=== PATIENT | female | born 1980 | race Caucasian/White ===

== ENCOUNTER 2025-03-18 13:59 | Emergency (ER) | payer BC ==
--- NOTE | 2025-03-18 15:55 | RAD REPORT ---
EXAM: Upper Ext Artery Bilateral HISTORY: bilateral upper extremities;Pain RIGHT COMPARISON: None TECHNIQUE: Multiplanar grayscale and color Doppler images were obtained for an upper extremity arteri al ultrasound. Spectral analysis of the Doppler waveforms were performed. The common carotid artery, subclavian artery, axillary artery, brachial artery, radial artery, and ulnar arteries were e valuated. FINDINGS: The common carotid artery, subclavian artery, axillary artery, brachial artery, radial artery, and ul rafaela arteries were evaluated. Flow was documented on color Doppler. The waveforms were multiphasic and within normal limits. Velocities are within normal limits. IMPRESSION: No significant arterial abnormality of the extremities.
--- NOTE | 2025-03-18 15:57 | RAD REPORT ---
EXAMINATION: UPPER EXTREMITY VENOUS BILAT CLINICAL INDICATION: Female, 44 years old.bilateral upper extremities;Pain TECHNIQUE: Multiplanar grayscale and color Doppler images were obtained in a upper extremity venous ultrasound. Spectral analysis of the Doppler waveforms were performed. COMPARISON: No prior exams FINDINGS: The internal jugular vein, subclavian vein, axillary vein, basilic vein, brachial vein, cephalic vein , radial vein, and ulnar vein were evaluated and patent. The brachial vein, cephalic vein, radial vein, and ulnar veins were compressible and patent. Nonocclusive thrombus present at the left cephalic vein at the antecubital fossa. IMPRESSION: No evidence of deep venous thrombosis in either upper extremity. Nonocclusive thrombus at the left cephalic vein which is a superficial branch.
--- NOTE | 2025-03-18 17:00 | EDPHYS ---
Physician Documentation [facility] Name: Zuri Wesley Age: 44 yrs Sex: Female : 1980 Arrival Date: 03/18/2025 Time: 13:59 Bed 5 Private MD: ED Physician Scout Rogers HPI: 03/18 15:37 This 44 yrs old Female presents to ER via Ambulatory with complaints of Numbness Of kb Hand. 15:37 Patient is a 44-year-old female who presents for numbness and tingling that has been kb intermittent for 1 week to the 2nd, 3rd and 4th digits of bilateral hands. States it is worse this morning so that is what brought her in. States symptoms have improved since then. States she is concerned about her blood flow.. Historical: - Allergies: 14:11 No Known Allergies; aa5 - PMHx: 14:11 None; aa5 - PSHx: 14:11 None; aa5 - Immunization history:: Adult Immunizations unknown. - Infectious Disease History:: Denies. - Social history:: Smoking status: Patient denies any tobacco usage or history of. ROS: 15:37 Constitutional: As per HPI kb Exam: 15:37 Constitutional: This is a well developed, well nourished patient who is awake, alert, kb and in no acute distress. Head/Face: Normocephalic, atraumatic. ENT: Moist Mucous membranes Cardiovascular: Regular rate Respiratory: Respirations even and unlabored. No increased work of breathing. Talking in full sentences Skin: Warm, dry with normal turgor. Normal color. Neuro: Awake and alert, GCS 15, oriented to person, place, time, and situation. 15:37 Musculoskeletal/extremity: Extremities: grossly normal except: noted in the palmar aspect of distal phalanx of right ring finger, palmar aspect of distal phalanx of right middle finger, palmar aspect of distal phalanx of right index finger, palmar aspect of distal phalanx of left ring finger, palmar aspect of distal phalanx of left middle finger and palmar aspect of distal phalanx of left index finger: Slight discoloration, ROM: intact in all extremities, Circulation is intact in all extremities. Sensation intact. Vital Signs: 14:10 BP 118 / 75; Pulse 74; Resp 16 S; Temp 98.2(O); Pulse Ox 100% on R/A; Weight 64.41 kg aa5 (R); Height 4 ft. 11 in. (R); 16:26 BP 124 / 74; Pulse 71; Resp 15; Pulse Ox 99% ; hb 14:10 Body Mass Index 28.68 (64.41 kg, 149.86 cm) aa5 MDM: 14:06 Medical Screening Exam initiated kb 17:00 Differential diagnosis: Autoimmune disorder, paresthesia, arterial occlusion, DVT. Data kb reviewed: vital signs, nurses notes. Management of patient was discussed with the following: Dr. Rogers who evaluated and spoke with patient as well. Recommends follow-up outpatient. Historians other than the Patient: Spouse/Significant Other: Significant other. Counseling: I had a detailed discussion with the patient and/or guardian regarding the historical points, exam findings, and any diagnostic results supporting the discharge/admit diagnosis, radiology results, the need for outpatient follow up, a family practitioner, to return to the emergency department if symptoms worsen or persist or if there are any questions or concerns that arise at home. 17:16 ED course: Patient requested to see physician, I went in and evaluated patient again rn and went over results. Patient has left superficial vein clot, secondary to IV draw, patient recently had vampire facial and IV was placed with draw on the left arm where clot is found. Patient also has family history of lupus and presents with intermittent paresthesias and discoloration and pain to bilateral fingertips. States this has been going on and off for about a week but got worse today. Otherwise no evidence of DVT or arterial occlusion. When I evaluated patient there was no discoloration. Does have slow capillary refill but otherwise okay. Given family history of lupus I told patient could have rheumatologic problem versus vasculitis versus spasm. Recommend rheumatologic and PCP follow-up for rheumatologic workup. Strict return precautions given and understood. Also patient uses preworkout stimulants often as well as caffeine. Recommend avoiding stimulants at this time until she gets evaluated again. Recommend baby aspirin and follow-up.. 03/18 14:31 Order name: Upper Ext Artery Bilateral; Complete Time: 15:59 EDMS 03/18 14:32 Order name: UPPER EXTREMITY VENOUS BILAT; Complete Time: 15:59 EDMS Administered Medications: No medications were administered Disposition Summary: 04/26/25 17:00 Discharge Ordered Notes: Location: Home kb Condition: Stable kb Diagnosis - Paresthesia of skin kb Followup: kb - With: Emergency Department - When: As needed - Reason: Worsening of condition Followup: kb - With: Private Physician - When: 2 - 3 days - Reason: Recheck today's complaints, Continuance of care, Re-evaluation by your physician Discharge Instructions: - Discharge Summary Sheet kb - Paresthesia, [id number] kb Forms: - Medication Reconciliation Form kb - Antibiotic Education kb - Prescription Opioid Use kb - Patient Portal Instructions kb - Leadership Thank You Letter kb Addendum: 03/20/2025 09:03 Co-signature as Attending Physician, Scout Rogers MD I reviewed the patient's care r n provided by the Advanced Practice Provider and agree with the diagnosis and treatment plan. Signatures: Dispatcher [employer] EDMS Fabi Smyth, GRIZZLYMAN-C GRIZZLYMAN-Ckb Scout Rogers MD MD rn Ginette Alfaro RN RN aa5 Corrections: (The following items were deleted from the chart) 03/18 14:31 14:17 Lower Extremity Arterial Bilat+US.RAD.BRZ ordered. EDMS EDMS 14:32 14:17 Extrem Venous W Compression Quan+US.RAD.BRZ ordered. EDMS EDMS 15:39 15:37 Patient is a 44-year-old female who presents for numbness and tingling that has kb been intermittent for 1 week to the 2nd, 3rd and 4th digits of bilateral hands. States it is worse today so that is what brought her in. States she is concerned about her blood flow.. kb
--- NOTE | 2025-03-18 17:00 | ER ---
Nurse's Notes [facility] Name: Zuri Wesley Age: 44 yrs Sex: Female : 1980 Arrival Date: 03/18/2025 Time: 13:59 Bed 5 Private MD: Diagnosis: Paresthesia of skin Presentation: 03/18 14:10 Chief complaint: Patient states: "I've had numbness, tingling, and discoloration to my aa5 fingers (Quan index, middle, and ring fingers) for about a week now". 14:10 Coronavirus screen: At this time, the client does not indicate any symptoms associated aa5 with coronavirus-19. Ebola Screen: Patient denies travel to an Ebola-affected area in the 21 days before illness onset. Initial Sepsis Screen: Does the patient meet any 2 criteria? No. Patient's initial sepsis screen is negative. Does the patient have a suspected source of infection? No. Patient's initial sepsis screen is negative. Risk Assessment: Do you want to hurt yourself or someone else? Patient reports no desire to harm self or others. Onset of symptoms was February 2025. 14:10 Acuity: MOODY 3 aa5 14:10 Method Of Arrival: Ambulatory aa5 Historical: - Allergies: 14:11 No Known Allergies; aa5 - PMHx: 14:11 None; aa5 - PSHx: 14:11 None; aa5 - Immunization history:: Adult Immunizations unknown. - Infectious Disease History:: Denies. - Social history:: Smoking status: Patient denies any tobacco usage or history of. Screenin:33 [facility] ED Fall Risk Assessment (Adult) History of falling in the last 3 months, hb including since admission No falls in past 3 months (0 pts) Confusion or Disorientation No (0 pts) Intoxicated or Sedated No (0 pts) Impaired Gait No (0 pts) Mobility Assist Device Used No (0 pt) Altered Elimination No (0 pt) Score/Fall Risk Level 0 - 2 = Low Risk Oriented to surroundings, Maintained a safe environment, Educated pt \\T\\ family on fall prevention, incl call for assistance when getting out of bed. Abuse screen: Denies threats or abuse. Denies injuries from another. Nutritional screening: No deficits noted. Tuberculosis screening: No symptoms or risk factors identified. Assessment: 14:33 General: Appears in no apparent distress. Behavior is calm, cooperative. Pain: Denies hb pain. Neuro: Level of Consciousness is awake, alert, obeys commands, Oriented to person, place, time, situation, Reports paresthesias right hand/fingers. Cardiovascular: Patient's skin is warm and dry. Respiratory: Respiratory effort is even, unlabored, Respiratory pattern is regular, symmetrical. GI: No signs and/or symptoms were reported involving the gastrointestinal system. : No signs and/or symptoms were reported regarding the genitourinary system. EENT: No signs and/or symptoms were reported regarding the EENT system. Derm: Skin is pink, warm \\T\\ dry. Musculoskeletal: No signs and/or symptoms reported regarding the musculoskeletal system. 16:26 Reassessment: Patient appears in no apparent distress at this time. Patient and/or hb family updated on plan of care and expected duration. Pain level reassessed. Patient is alert, oriented x 3, equal unlabored respirations, skin warm/dry/pink. 17:25 Reassessment: Patient is alert, oriented x 3, equal unlabored respirations, skin aa5 warm/dry/pink. Vital Signs: 14:10 BP 118 / 75; Pulse 74; Resp 16 S; Temp 98.2(O); Pulse Ox 100% on R/A; Weight 64.41 kg aa5 (R); Height 4 ft. 11 in. (R); 16:26 BP 124 / 74; Pulse 71; Resp 15; Pulse Ox 99% ; hb 14:10 Body Mass Index 28.68 (64.41 kg, 149.86 cm) aa5 ED Course: 14:02 Patient arrived in ED. im 14:06 Fabi Smyth FNP-C is PHCP. kb 14:06 Scout Rogers MD is Attending Physician. kb 14:10 Arm band placed on. aa5 14:13 Triage completed. aa5 14:33 Patient has correct armband on for positive identification. Bed in low position. Call hb light in reach. Provided Education on: tests, result times. 14:33 No provider procedures requiring assistance completed. Patient did not have IV access hb during this emergency room visit. 14:36 Fanny Alvarez, RN is Primary Nurse. cm10 15:49 Upper Ext Artery Bilateral In Process Unspecified. EDMS 15:50 UPPER EXTREMITY VENOUS BILAT In Process Unspecified. EDMS Administered Medications: No medications were administered Medication: 14:33 VIS not applicable for this client. hb Outcome: 17:00 Discharge ordered by . juan antonio 17:25 Discharged to home ambulatory, with significant other, aa5 17:25 Condition: stable 17:25 Discharge instructions given to patient, Instructed on discharge instructions, follow up and referral plans. Demonstrated understanding of instructions, follow-up care, 17:27 Patient left the ED. aa5 Signatures: Dispatcher [employer] EDMS Fabi Smyth, JESS-Bob MERCADO-Ginette Kim, RN RN aa5 Clarissa Guajardo, RN RN Haley Ang Clarissa, RN RN cm10 Corrections: (The following items were deleted from the chart) 14:36 14:33 Neuro: Level of Consciousness is awake, alert, obeys commands, Oriented to hb person, place, time, situation, Reports paresthesias left hand/fingers hb
[2025-03-20 20:31] VITALS: TEMP 98.2
[2025-03-20 20:33] VITALS: BP 124/74; O2SAT 99
== END 2025-03-18 17:27 | disposition home or self-care (01) ==
LOC: ER 13:59
DX: R20.2 Paresthesia of skin (principal)
CPT/HCPCS: 93930; 93970; 99282